=== PATIENT | male | born 2000 | race Caucasian/White ===

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

== ENCOUNTER 2021-06-14 09:49 | Emergency (ER) | payer MEDICAID, SELFPAY ==
[2021-06-14 09:50] VITALS: BP 145/78; PULSE 96; RESP 16; TEMP 36.3; O2SAT 96; BMI 37.5
[2021-06-14] MEDS: Ibuprofen 600 MG Tablet PO (11:11)
--- NOTE | 2021-06-14 11:20 | RAD_ITS ---
STUDY: X-RAY - PELVIS AND RIGHT HIP REASON FOR EXAM: Right hip/groin pain after feeling a pop 3 days ago. TECHNIQUE: 2 views of the pelvis and hip. COMPARISON: Radiographs 03/11/2020. FINDINGS: Normal visualized soft tissue structures. Normal bilateral iliac wings, sacroiliac joints and visualized sacrum. Normal bilateral superior and inferior pubic rami. Normal pubic symphysis. Normal bilateral ischial tuberosities. Normal visualized femoral head. Normal acetabulum. Normal hip joint. RAD/HIP, UNI W/ Pelvis 2-3 Views IMPRESSION: Normal x-ray examination of the right hip. Electronically Signed: Kole Mcfarlane MD at 11:44 EDT Tel , Service support ,
--- NOTE | 2021-06-14 11:34 | ED.VIS.LOWEX ---
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 Patient states he was sitting down when he felt a pop in his right groin and immediately had pain. He has been sore there and states the pain radiates to his hip. He is having a hard time walking the pain is been getting worse. He describes as aching in nature. He now describes it as sharp and radiating to his outside his right hip. Initially had some associated back pain but that has since resolved. He is unable to sleep last night because the pain was so bad and took Tylenol last at 4 AM. He denies associated numbness or tingling. He denies any testicular pain. Denies any urinary or bowel symptoms. No other complaints at this time. PFSH PFS Home Medications NK 06/14/21 [History Last Taken Unknown] Allergy/AdvReac Type Severity Reaction Status Date / Time No Known Allergies Allergy Verified 06/14/21 09:53 Surgical History H/O: knee surgery Social History Smoking Status: Never smoker ROS ROS ED Constitutional Constitutional ED: Denies chills or fever(s) Respiratory/Chest Respiratory/Chest: Denies dyspnea Gastrointestinal Gastrointestinal: Denies abdominal pain, diarrhea or vomiting Genitourinary Genitourinary ED: Denies dysuria, hematuria or urinary frequency Musculoskeletal Musculoskeletal: Reports other Details: right hip and groin pain Integumentary Denies rash Neurologic Neurologic: Denies headache(s), paresthesias or weakness Psychiatric Psychiatric: Denies depression EXAM Physical Exam Const Vital Signs: 06/14/21 09:50 Temperature 97.4 F L Temperature Source Temporal Pulse Rate 96 Respiratory Rate 16 Blood Pressure 145/78 H Blood Pressure Mean 100 Pulse Ox 96 Oxygen Delivery Method Room Air Positive well nourished and well developed General Appearance ED: well developed HEENT normocephalic Neck full ROM Chest Wall inspection of chest normal Resp normal respiratory effort and clear to auscultation bilaterally Cardio regular rate, regular rhythm and no murmurs Cardio Narrative: 2+ bilateral PT pulses GI non-tender and non-distended Palpation: soft Back/Spine no CVA tenderness Thoracic Spine / Upper Back: Negative for thoracic spinal tenderness Lumbar Spine / Lower Back: straight leg raise negative bilaterally; Negative for lumbar spinal tenderness Extremity Extremity Narrative: No obvious deformity. Pain with logroll and range of motion of the right hip. No significant tenderness palpation of the greater trochanter. Extensor mechanism limited secondary to pain but appears to be intact. Normal strength with dorsiflexion and plantarflexion. Neuro oriented x3 and moves all extremities Sensorium / Orientation: alert Motor Exam: strength 5/5 throughout Psych mental status grossly normal Skin Lesions: no lesions Rashes: no rashes MDM MDM MDM Narrative Medical decision making narrative: Patient evaluated for popping sensation and pain in his right hip. I suspect he has a strain of his right hip. X-ray obtained to rule out any type of pathological fracture or dislocation. This is negative. I have a lower suspicion for bursitis or referred testicular/scrotal pain. I do not feel any hernia in the groin. Patient be discharged home to follow-up with his orthopedist, Dr. Church. Instructed to take NSAIDs and given a dose in the emergency room. Patient and mother verbalized agreement understand this plan. Patient discharged home in stable condition. Radiography X-Ray: Read by ED Physician, Read by Radiologist, Normal and No Fracture Diagnostic Testing: Clinical Impression(s) from Imaging Studies Hip/Pelvis X-Ray 06/14/21 11:20 IMPRESSION: Normal x-ray examination of the right hip. Electronically Signed: Kole Mcfarlane MD at 11:44 EDT Tel , Service support , Discharge Plan Triage Chief Complaint: Lower Extremity Injury ED Provider: Anya Dewey Dx/Rx/DC Orders Clinical Impression: Strain of muscle of right hip Instructions: ED Hip Strain Prescriptions: No Action NK RF: 0 Primary Care Provider: Nena Chino NP Referrals: Nena Chino NP, [employer] [Primary Care Provider] - Activity Restrictions/Additional Instructions: Please follow-up with your orthopedist. Ice, rest and anti-inflammatory such as ibuprofen helped the pain. Your x-ray is normal today. Disposition Disposition: Home, Self Care Discharge Date/Time: 06/14/21 12:34
== END 2021-06-14 12:34 | disposition home or self-care (01) ==
PROVIDERS: Emergency Provider Emergency Medicine; PCP Nurse Practitioner Family
DX: S76.011A Strain of muscle, fascia and tendon of right hip, initial encounter (principal); X58.XXXA Exposure to other specified factors, initial encounter; Y93.9 Activity, unspecified; Y92.9 Unspecified place or not applicable; Y99.9 Unspecified external cause status
CPT/HCPCS: 73502; 99283

== ENCOUNTER → 2023-02-11 | Outpatient (CLI) | payer MEDICAID, SELFPAY ==
[2023-02-11 12:45] LABS: Absolute Lymphocyte Count 2.54 X10^3/uL (0.83-4.51); Absolute Neutrophil Count 4.2 X10^3/uL (2.0-7.7); Basophil# 0.05 X10^3/uL; Basophil% 0.7 % (0-1); Eosinophil# 0.17 X10^3/uL; Eosinophils% 2.2 % (0-5); Hematocrit 51.8 % (40-54); Hemoglobin 16.7 g/dL (13.0-16.5); Lymphocyte # 2.54 X10^3/ul (0.83-4.51); Lymphocyte % 33.6 % (19-41); Mean Corp Hgb Conc 32.2 g/dL (32-36); Mean Corpuscular Hgb 29.7 pg (27.0-32.0); Mean Platelet Vol. 11.1 fl (6.2-12.0); Monocyte# 0.57 X10^3/uL; Monocyte% 7.5 % (0-10); NRBC Flagged by Analyzer 0 % (0-5); Neutrophil # 4.21 X10^3/uL (2.7-7.7); Neutrophil % 55.6 % (47-70); Platelet Count 234 K/mm3 (150-450); RBC Distribution Width CV 13.4 % (11.6-14.6); RBC Distribution Width SD 45.4 fl (35.1-43.9); Red Blood Count 5.63 M/mm3 (4.6-6.2); White Blood Count 7.6 K/mm3 (4.4-11.0)
[2023-02-11 14:02] LABS: ALB/GLOB Ratio 1.2 RATIO (0.9-2.4); AST(SGOT) 27 U/L (15-37); Alanine Aminotransfer ALT/SGPT 42 U/L (16-61); Albumin, Serum 4.2 g/dL (3.2-5.0); Alkaline Phosphatase 39 U/L (45-117); Anion Gap 4 (5-15); BUN 10 mg/dL (7-18); BUN/Creat Ratio 10.6 RATIO (10-20); Calcium,Total 9.7 mg/dL (8.5-10.1); Chloride 106 mmol/L (98-107); Cholesterol 134 mg/dL (200); Creatinine, Serum 0.94 mg/dL (0.70-1.30); EST Glomerular Filtration Rate 106 mL/min (>60); Est Glom Filt Rate - Afr Amer 129 mL/min (>60); Globulin 3.6 g/dL (2.2-4.2); Glucose 96 mg/dL (74-106); High Density Lipoprotein 39 mg/dL; Potassium 4.1 mmol/L (3.5-5.1); Protein, Total 7.8 g/dL (6.4-8.2); Sodium Level 138 mmol/L (136-145); Triglycerides 79 mg/dL; Very Low Density Lipoprotein 16 mg/dL (5-40)
== END | disposition home or self-care (01) ==
LOC: BIMLAB 08:01
PROVIDERS: PCP Internal Medicine; Referring Provider Internal Medicine; Visit Provider Internal Medicine
DX: E66.9 Obesity, unspecified (principal)
CPT/HCPCS: 36415; 80053; 80061; 85025